=== PATIENT | female | born 1960 | race Caucasian/White ===

== ENCOUNTER 2021-08-31 23:12 | Emergency (ER) | payer MEDICARE, MEDICAID, SELFPAY ==
--- NOTE | ~2021-08-31 | XR_ITS ---
EXAMINATION: XR chest 2V DATE: 09/01/2021 00:15 INDICATION: Chest pain TECHNIQUE: PA and lateral views of the chest were obtained. COMPARISON: Chest radiograph dated 10/28/2017 FINDINGS: The lungs remain clear with no focal airspace opacities, pulmonary edema, pleural effusion or pneumot horax. The cardiomediastinal silhouette is normal. Interval placement of a right shoulder arthroplast y. Plate-screw fixation for lower cervical anterior spinal fusion. Mild S-shaped curvature of the tho racic spine with moderate spondylosis. Postoperative changes in the abdomen. IMPRESSION: 1. No acute cardiopulmonary disease. Reviewed, dictated and finalized at location A.
--- NOTE | ~2021-08-31 | CT_ITS ---
EXAMINATION: CT abdomen pelvis w con DATE: 09/01/2021 00:14 INDICATION: Epigastric pain. Prior pancreatitis. TECHNIQUE: Computed tomography (CT) of the abdomen and pelvis was performed with 75 mL Omnipaque-300 intravenous contrast. Automated exposure control and iterative reconstruction technique were employed . The dose-length product was 408.56 mGy-cm. COMPARISON: 01/23/2019 FINDINGS: Mild left basilar atelectasis. Heart size is normal. Dense mitral annular calcific location. No peric ardial or pleural effusion. Liver, gallbladder, spleen, bilateral adrenal glands are normal. Small re gion of cortical scarring at the lower pole of the left kidney. 8 mm low-attenuation right renal cyst . Subtle dystrophic calcifications in the pancreas consistent with sequela of chronic pancreatitis. N o peripancreatic inflammatory stranding to suggest acute pancreatitis. Slight decrease in degree of d ilation of the common bile duct now measuring 10 mm in maximal diameter. Bladder, anteverted uterus a nd bilateral adnexa are unremarkable. Postoperative change of prior partial colectomy with anastomosi s along the descending colon. Small bowel and appendix are normal. No free intraperitoneal gas or flu id. No pathologically enlarged abdominal or pelvic lymphadenopathy. Prominent diffuse osteopenia. Mod erate to severe lumbar and lower thoracic spondylosis. Moderate bilateral hip osteoarthritis. IMPRESSION: 1. No acute intra-abdominal/pelvic process. Reviewed, dictated and finalized at location A.
--- NOTE | 2021-08-31 23:16 | ECG_ITS ---
Measurements Intervals [place] Rate: 78 P: 67 LA: 130 QRS: 42 QRSD: 87 T: 34 QT: 371 QTc: 424 Interpretive Statements SINUS RHYTHM POSSIBLE LEFT ATRIAL ENLARGEMENT DELAYED PRECORDIAL R/S TRANSITION MINIMAL Q WAVES- INFERIOR LEADS BORDERLINE ECG Electronically Signed On 09-01-2021 7:01:36 CDT by Kirk Bejarano D.O.
[2021-08-31 23:22] VITALS: BP 126/94; PULSE 84; RESP 20; TEMP 36.6; O2SAT 95
[2021-08-31 23:40] VITALS: PULSE 84; RESP 20
[2021-08-31 23:45] VITALS: PULSE 75; RESP 14
[2021-08-31 23:47] VITALS: BP 143/85; PULSE 73; RESP 12; O2SAT 92
[2021-08-31 23:47] LABS: Alanine Aminotransferase 18 U/L (6-35); Albumin Level 4.4 g/dL (3.5-5.1); Alkaline Phosphatase 77 U/L (38-126); Anion Gap 9 mmol/L (8-16); Aspartate Amino Transferase 33 U/L (14-36); Bilirubin,Total 0.8 mg/dL (0.2-1.3); Blood Urea Nitrogen 11 mg/dL (7-17); Carbon Dioxide 24 mmol/L (22-30); Chloride 101 mmol/L (98-107); Estimated CRCL calculation 57 ml/min; Estimated Glomerular Filt Rate > 60; Glucose 101 mg/dL (65-110); Lipase 32 U/L (23-300); Potassium 4.1 mmol/L (3.4-5.0); Sodium 134 mmol/L (137-145)
--- NOTE | 2021-08-31 23:52 | ED.CHESTPAIN ---
HPI - Chest Pain General Chief Complaint: Chest Pain Stated Complaint: CHEST PAIN Time Seen by Provider: 08/31/21 23:29 Source: patient History of Present Illness HPI narrative: Patient reports abdominal tightness. She reports significant intermittent for the past few days constant since this afternoon. Describes a squeezing sensation in her upper abdomen. He does radiate to her back there is no clear aggravating or alleviating factors. Reports she thinks may be she feels a little short of breath denies any nausea or vomiting she denies any diarrhea. She does report intermittent constipation at baseline she denies any urinary symptoms. She denies any fevers, cough, congestion. Related Data Allergies Allergy/AdvReac Type Severity Reaction Status Date / Time No Known Allergies Allergy Verified 08/31/21 23:26 Review of Systems Review of Systems: CONSTITUTIONAL: Denies fever, chills, or sweats. EYES: Denies visual changes, redness, or discharge. ENT: Denies rhinorrhea, congestion, sore throat, or otalgia. CARDIOVASCULAR: Denies chest pain, palpitations, or edema. RESPIRATORY: Denies cough or dyspnea. GASTROINTESTINAL: Denies nausea, vomiting, or diarrhea. GENITOURINARY: Denies dysuria or hematuria. SKIN: Denies rash or itching. MUSCULOSKELETAL: Denies back pain, joint pain, or myalgia. NEUROLOGIC: Denies headache, numbness, dizziness, or weakness. PSYCHIATRIC: Denies anxiety or depression. All systems reviewed & are unremarkable except as noted in HPI and below PMFSH Past Medical History Medical History (Updated 09/01/21 @ 03:10 by Terry Luna MD) COPD (chronic obstructive pulmonary disease) Pancreatitis Exam Narrative: GENERAL: Well-appearing, well-nourished, and in no acute distress. HEAD: Normocephalic, atraumatic. EYES: PERRLA and EOMI. ENT: Nares clear, no rhinorrhea or epistaxis. Mucous membranes moist. NECK: Supple. No masses. No JVD CHEST: Clear to auscultation. No respiratory distress. No wheezes rales or rhonchi HEART: Regular rate and rhythm. No murmur heard. Normal peripheral pulses. ABDOMEN: Mild tenderness palpation of the epigastric area soft, nondistended, normal active bowel sounds. EXTREMITIES: Normal range of motion. No edema. SKIN: Warm, dry, no rash. NEURO: No focal deficits. Alert and oriented x3. PSYCH: Normal mood and affect. Course Reevaluation(s) Reevaluation #1: Patient resting comfortably results and plan reviewed with patient. Patient is comfortable outpatient plan. Date: 09/01/21 Time: 03:08 Vital Signs Vital signs: Vital Signs Temperature 36.6 C 08/31/21 23:22 Pulse Rate 84 08/31/21 23:22 Respiratory Rate 20 08/31/21 23:22 Blood Pressure 126/94 H 08/31/21 23:22 Pulse Oximetry 95 08/31/21 23:22 Temperature 36.6 C 08/31/21 23:22 Pulse Rate 82 09/01/21 03:24 Respiratory Rate 16 09/01/21 03:24 Blood Pressure 134/87 09/01/21 03:24 Pulse Oximetry 95 09/01/21 03:24 MDM - Chest Pain MDM Narrative Medical decision making narrative: H&P as above, vss, pt looks clinically well, exam with epigastric pain, labs clinically unremarkable to include a delta troponin img without acute process, additional labs/img considered, symptomatic relief available as needed, on reevaluation pt continues to looks clinically well. Symptoms remain of unclear etiology low concern for pancreatitis, ACS, perforation, bowel obstruction. plan to tx/monitor as op w/ pcm f/u findings/plan discussed with pt, pt agree/comfortable with plan, return precautions given Lab Data Result diagrams: 08/31/21 23:59 08/31/21 23:32 Labs: Lab Results 08/31/21 08/31/21 09/01/21 Range/Units 23:32 23:59 00:36 WBC 7.5 (4.5-10.0) K/mm3 RBC 4.54 (4.2-5.4) M/mm3 Hgb 12.9 (12.0-15.0) g/dL Hct 40.1 (37.0-47.0) % MCV 88.3 (80-100) fl MCH 28.4 (26-34) pg MCHC 32.2 (32-36) g/dl RDW 14.6 H (11.5-14.5) % Plt Count
[2021-08-31 23:58] LABS: Troponin I < 0.012 ng/mL (0.000-0.034)
[2021-09-01] VITALS (13 sets, daily range): BP systolic 128–138; BP diastolic 72–87; PULSE 62–82; RESP 9–17; O2SAT 90–97
[2021-09-01 00:22] LABS: Basophils Absolute Auto 0.1 K/mm3 (0.0-0.1); Basophils Percent Auto 1.1 % (0.2-1.2); Eosinophils Absolute Auto 0.6 K/mm3 (0-0.3); Eosinophils Percent Auto 7.7 % (0-4.4); Hematocrit 40.1 % (37.0-47.0); Hemoglobin 12.9 g/dL (12.0-15.0); Immature Granulocyte Absolute 0.03 K/mm3 (0.00-0.031); Immature Granulocyte Percent A 0.4 % (0-0.5); Lymphocytes Percent Auto 33.3 % (18.3-44.2); Mean Corpuscular HGB Conc 32.2 g/dl (32-36); Mean Corpuscular Hemoglobin 28.4 pg (26-34); Mean Corpuscular Volume 88.3 fl (80-100); Mean Platelet Volume 10.3 fl (7.4-10.4); Monocytes Absolute Auto 0.9 K/mm3 (0.1-0.6); Monocytes Percent Auto 11.9 % (2.6-8.5); Neutrophils Absolute Auto 3.4 K/mm3 (1.3-6.7); Neutrophils Percent Auto 45.6 % (45.5-73.1); Platelet Count Result 238 k/mm3 (150-375); Red Blood Count 4.54 M/mm3 (4.2-5.4); Red Cell Distribution Width 14.6 % (11.5-14.5); White Blood Count 7.5 K/mm3 (4.5-10.0)
[2021-09-01] MEDS: LIDOCAINE HCL 2% VISC SOLN 15 ML UDC 20 ML PO (00:34)
[2021-09-01] MEDS: MAG HYDROX/AL HYDROX/SIMETH 30 ML UDC PO (00:34)
[2021-09-01 00:47] LABS: Partial Thromboplastin Time 25.5 SECONDS (22.3-36.8)
[2021-09-01 02:57] LABS: Troponin I < 0.012 ng/mL (0.000-0.034)
== END 2021-09-01 03:27 | disposition home or self-care (01) ==
PROVIDERS: Emergency Provider Emergency Medicine
DX: R10.13 Epigastric pain (principal); J44.9 Chronic obstructive pulmonary disease, unspecified; R94.31 Abnormal electrocardiogram [ECG] [EKG]
CPT/HCPCS: 36415; 71046; 74177; 80053; 83690; 84484; 85025; 85610; 85730; 93005; 99284; A9270; Q9967

== ENCOUNTER 2023-04-21 14:55 | Emergency (ER) | payer MEDICARE, MEDICAID, SELFPAY ==
--- NOTE | ~2023-04-21 | XR_ITS ---
EXAMINATION: XR chest 2V DATE: 04/21/2023 15:34 INDICATION: Cough. TECHNIQUE: Frontal and lateral views of the chest were obtained. COMPARISON: Chest 2 views 09/01/2021 FINDINGS: There is a 7 cm mass in right hilum. There is mild atelectasis in right upper lobe. There i s a 12 mm nodule in right lower lobe. No pleural effusion or pneumothorax. The heart size is normal. There are changes of anterior fusion procedure in cervical spine. There is a right shoulder arthropla sty. IMPRESSION: 1. Right lung nodule and right hilar mass, consistent with metastatic lung cancer. Reviewed, dictated and finalized at location A. ING EQUIPMENT REPAIRER SUPERVISOR IMPRESSION: 1. Right lung nodule and right hilar mass, consistent with metastatic lung canc er.
[2023-04-21 15:02] VITALS: BP 121/75; PULSE 97; RESP 20; TEMP 36.3; O2SAT 94
--- NOTE | 2023-04-21 15:08 | ED.GENADULT ---
HPI - General Adult General Chief complaint: Weakness <Sravani Cam August, - Last Filed: 04/21/23 15:14> Stated complaint: weakness <Sravani Cam August, - Last Filed: 04/21/23 15:14> Time Seen by Provider: 04/21/23 18:22 <Sravani Cam August, - Last Filed: 04/21/23 15:14> History of Present Illness HPI narrative: Lo Gonzales is a 63 y/o female with PMHx of lung CA dx this past October, not on treatment reports she is doing palliative care with [place]. She presents today with complaints of productive cough, she finished a round of antibiotics about 4 days ago and thinks that her cough is somewhat better but she feels that she might have a bad infection to her chest. She reports that she has had very little to eat but is drinking fluids, she reports her last BM was about a week ago and states that she does have rounds of constipation. <Sravani Cam August, - Last Filed: 04/21/23 15:14> Related Data Allergies/adverse reactions: Allergies Allergy/AdvReac Type Severity Reaction Status Date / Time No Known Allergies Allergy Verified 04/21/23 18:48 <Sravani Cam August, - Last Filed: 04/21/23 15:14> Review of Systems Review of Systems: All systems as dictated in HPI <Kuldeep Nye PA-C - Last Filed: 04/22/23 01:46> [facility] Past Medical History Medical History: Medical History (Updated 04/22/23 @ 00:01 by Kuldeep Nye PA-C) COPD (chronic obstructive pulmonary disease) Pancreatitis <Sravani Cam August, - Last Filed: 04/21/23 15:14> Exam Narrative: GENERAL: Appears older than stated age. HEAD: Normocephalic, atraumatic. EYES: PERRLA and EOMI. ENT: Mucous membranes dry Nares clear, no rhinorrhea or epistaxis. Oropharynx without tonsillar hypertrophy exudate or other lesions. NECK: Supple. No adenopathy or masses. CHEST: No respiratory distress. Clear to auscultation. No wheezes rales or rhonchi. 96% room air. HEART: Regular rate and rhythm. No murmur heard. Normal peripheral pulses. ABDOMEN: Soft, nontender, nondistended, with hypoactive bowel sounds.. MSK: Normal range of motion. No edema. SKIN: Warm, dry, no rash. NEURO: Alert and oriented x3. No focal deficits. PSYCH: Normal mood and affect. <Kuldeep Nye PA-C - Last Filed: 04/22/23 01:46> Course Course Emergency Course: Spoke with Dr. Small (hospitalist): We discussed possibility of admission for this patient. She does not feel patient needs to be admitted with otherwise asymptomatic hypercalcemia. She is declining admission, recommends adding an additional 2 L of fluids as well as checking calcium again and that she could be discharged after this. <Kuldeep Nye PA-C - Last Filed: 04/22/23 01:46> GRAPE CUTTER/PA Physician Supervision Given initial plan for admission, GRAPE CUTTER/PA discussed patient with me. Aware of underlying malignant process with plans for palliative care but currently experiencing weakness and fatigue. Covid positive and hypercalcemic. I did assess patient at bedside. She continues to feel unwell but is otherwise hemodynamically stable. Unable to obtain iCal in timely manner due to it being a send out lab. Calcium level of 14.4 corrects to 14.6 in the setting of albumin 3.7. Also discussed other hypercalcium management options such as bisphosphonates , furosemide if volume overload occurs. I am informed that hospitalist recommending deferring admisssion at this time and recommending 2L additional fluid bolus with re-check of calcium. Patient still in the departmetn at the end of my shift. ESPERANZA to follow up on repeat labs. <Karen Womack MD - Last Filed: 04/22/23 04:11> Vital Signs Vital signs: Vital Signs Temperature 97.3 F L 04/21/23 15:02 Pulse Rate 97 04/21/23 15:02 Respiratory Rate 20 04/21/23 15:02 Blood Pressure 121/75 04/21/23 15:02 Pulse Oximetry 94 04/21/23 15:02 Oxygen Delivery Room Air 04/21/23 15:02 Temperature 97.3 F L 04/21/23 15:02 Pulse Rat
--- NOTE | 2023-04-21 16:59 | PC.NURSE ---
Pt states she is on palliative care for lung cancer since February 2023. Pt recently started on Zpack, Levaquin & musinex for Bronchitis. Increase weakness & general malaise today
[2023-04-21 17:22] LABS: Basophils Percent Auto 0.2 % (0.2-1.2); Hematocrit 41.7 % (37.0-47.0); Hemoglobin 13.3 g/dL (12.0-15.0); Immature Granulocyte Absolute 0.06 K/mm3 (0.00-0.031); Immature Granulocyte Percent A 0.5 % (0-0.5); Lymphocytes Absolute Auto 1.26 K/mm3 (0.9-3.2); Lymphocytes Percent Auto 9.6 % (18.3-44.2); Mean Corpuscular HGB Conc 31.9 g/dl (32-36); Mean Corpuscular Volume 81.4 fl (80-100); Mean Platelet Volume 10.6 fl (7.4-10.4); Monocytes Absolute Auto 0.5 K/mm3 (0.1-0.6); Monocytes Percent Auto 3.8 % (2.6-8.5); Neutrophils Absolute Auto 11.2 K/mm3 (1.3-6.7); Neutrophils Percent Auto 85.9 % (45.5-73.1); Platelet Count Result 448 k/mm3 (150-375); Red Blood Count 5.12 M/mm3 (4.2-5.4); Red Cell Distribution Width 14.6 % (11.5-14.5); White Blood Count 13.1 K/mm3 (4.5-10.0)
[2023-04-21 17:57] LABS: Alanine Aminotransferase 18 U/L (6-35); Albumin Level 3.7 g/dL (3.5-5.1); Alkaline Phosphatase 141 U/L (38-126); Anion Gap 7 mmol/L (8-16); Aspartate Amino Transferase 39 U/L (14-36); Bilirubin,Total 0.7 mg/dL (0.2-1.3); Blood Urea Nitrogen 14 mg/dL (7-17); Carbon Dioxide 28 mmol/L (22-30); Chloride 99 mmol/L (98-107); Estimated CRCL calculation 47 ml/min; Estimated Glomerular Filt Rate > 60; Glucose 116 mg/dL (65-110); Potassium 3.3 mmol/L (3.4-5.0); Sodium 134 mmol/L (137-145)
[2023-04-21 17:58] LABS: Influenza A QL RT-PCR Negative (Negative); Influenza B QL RT-PCR Negative (Negative); RSV RNA, RT-PCR Negative (Negative); SARS-CoV-2 RNA PCR Positive (Negative)
[2023-04-21 18:07] LABS: Calcium 14.4 mg/dL (8.4-10.2)
--- NOTE | 2023-04-21 18:23 | ECG_ITS ---
Measurements Intervals [place] Rate: 80 P: 71 IA: 125 QRS: 47 QRSD: 93 T: 48 QT: 344 QTc: 398 Interpretive Statements SINUS RHYTHM POSSIBLE LEFT ATRIAL ENLARGEMENT MINIMAL Q WAVES- INFERIOR LEADS BASELINE ARTIFACT- I, III, AVR, AVL BORDERLINE ECG COMPARED TO ECG 08/31/2021 23:21:06 NO SIGNIFICANT CHANGES Electronically Signed On 04-21-2023 19:24:10 ADMINISTRATIVE STAFF SUPERVISOR by Kirk Bejarano D.O.
[2023-04-21 18:39] LABS: Magnesium 2.2 mg/dL (1.6-2.3); Phosphorus 2.5 mg/dL (2.5-4.5)
[2023-04-21 18:45] VITALS: O2SAT 98
[2023-04-21 18:47] VITALS: BP 133/93; PULSE 81; RESP 21; O2SAT 96
--- NOTE | 2023-04-21 19:16 | PC.NURSE ---
Report given to Radha DELEON, all questions answered.
[2023-04-21 19:18] VITALS: BP 137/91; PULSE 82; RESP 15; O2SAT 96
[2023-04-21] MEDS: SODIUM CHLORIDE 0.9% IV 1,000 ML 500 ML IV CONT (19:18)
[2023-04-21 19:29] LABS: Lipase 442 U/L (23-300)
[2023-04-21] MEDS: SODIUM CHLORIDE 0.9% IV 1,000 ML 999 ML IV CONT ×2 (20:45→22:28)
[2023-04-21 22:46] LABS: Appearance Urine Cloudy (Clear); Bacteria Urine None Seen /hpf; Bilirubin Urine Negative (Negative); Blood Urine Negative (Negative); Color Urine Yellow (Yellow); Glucose Urine UA Negative (Negative); Ketones Urine Negative (Negative); Leukocyte Esterase Ur Trace LEU/UL (Negative); Nitrate Urine Negative (Negative); Non Pathogenic Casts 0-2; Protein Urine Negative (Negative); RBC Urine 0-2 /hpf (0-2); Specific Grav Ur 1.006 (1.001-1.035); Squamous Epithelial Cell Urine None seen /hpf (Few); Urobilinogen Urine 0.2 mg/dL (<2.0); WBC Urine 0-5 /hpf; pH Urine 7.5 (5.0-9.0)
[2023-04-21 22:49] LABS: Add Urine Microscopic? YES
[2023-04-21] MEDS: POTASSIUM CHLORIDE 20 MEQ ER TABLET 40 MEQ PO (23:29)
[2023-04-21 23:42] LABS: Anion Gap 5 mmol/L (8-16); Blood Urea Nitrogen 13 mg/dL (7-17); Calcium 12.5 mg/dL (8.4-10.2); Carbon Dioxide 26 mmol/L (22-30); Chloride 106 mmol/L (98-107); Estimated CRCL calculation 47 ml/min; Estimated Glomerular Filt Rate > 60; Glucose 99 mg/dL (65-110); Potassium 3.5 mmol/L (3.4-5.0); Sodium 137 mmol/L (137-145)
[2023-04-22 00:15] VITALS: BP 162/91; PULSE 78; RESP 20; O2SAT 98
== END 2023-04-22 00:17 | disposition home or self-care (01) ==
PROVIDERS: Nurse Practitioner Family; Emergency Provider Physician Assistant
DX: U07.1 COVID-19 (principal); E86.0 Dehydration; J44.9 Chronic obstructive pulmonary disease, unspecified
CPT/HCPCS: 36415; 71046; 80048; 80053; 81001; 82330; 83690; 83735; 84100; 85025; 87637; 93005; 96360; 96361; 99283; A9270; J7030